=== PATIENT | female | born 1955 | race Caucasian/White ===

== ENCOUNTER 2019-03-05 07:24 | Emergency (ER) | payer OTHER ==
[2019-03-05 07:31] VITALS: BP 151/72; PULSE 66; TEMP 98.6; BMI 39.3
--- NOTE | 2019-03-05 07:33 | PDOC ---
History of Present Illness - General Chief Complaint: Revisit, Lab Variance Stated Complaint: elevated K level Time Seen by Provider: 03/05/19 07:27 History Source: Patient Exam Limitations: No Limitations - History of Present Illness Initial Comments: 03/05/19 07:30 64 year old female c/ hx of HTN, HLD presents with potassium level check. Several days ago, pt went under routine blood work. Blood results came back and noted an elevated potassium. Pt's PMD, Dr. Casanova, instructed the patient to go to ER for repeat blood work. Pt at this time currently has no complaints. Past History - Past Medical History Allergies/Adverse Reactions: Allergies Allergy/AdvReac Type Severity Reaction Status Date / Time No Known Allergies Allergy Verified 03/05/19 07:25 Home Medications: Ambulatory Orders Losartan Potassium 50 mg PO DAILY 03/05/19 Quinapril HCl 10 mg PO DAILY 03/05/19 COPD: No GI Disorders: Yes (ACID REFLUX) HTN: Yes Kidney Stones: Yes - Surgical History Cholecystectomy: Yes Orthopedic Surgery: Yes (R KNEE) - Suicide/Smoking/Psychosocial Hx Smoking Status: No Smoking History: Never smoked Have you smoked in the past 12 months: No Number of Cigarettes Smoked Daily: 0 Cigars Per Day: 0 Hx Alcohol Use: No Drug/Substance Use Hx: No Substance Use Type: None Review of Systems - Review of Systems Able to Perform ROS?: Yes Comments:: 03/05/19 07:31 GENERAL/CONSTITUTIONAL: [No fever or chills. No weakness. No weight change.] HEAD, EYES, EARS, NOSE AND THROAT: [No change in vision. No ear pain or discharge. No sore throat.] CARDIOVASCULAR: [No chest pain or shortness of breath.] RESPIRATORY: [No cough, wheezing, or hemoptysis.] GASTROINTESTINAL: [No nausea, vomiting, diarrhea or constipation. No rectal bleeding.] GENITOURINARY: [No dysuria, frequency, or change in urination.] MUSCULOSKELETAL: [No joint or muscle swelling or pain. No neck or back pain.] SKIN AND BREASTS: [No rash or easy bruising.] NEUROLOGIC: [No headache, vertigo, loss of consciousness, or loss of sensation.] PSYCHIATRIC: [No depression or anxiety.] ENDOCRINE: [No increased thirst. No abnormal weight change.] HEMATOLOGIC/LYMPHATIC: [No anemia, easy bleeding, or history of blood clots.] ALLERGIC/IMMUNOLOGIC: [No hives or skin allergy. No latex allergy.] *Physical Exam - Physical Exam Comments: 03/05/19 07:32 GENERAL: Awake, alert, and fully oriented, in no acute distress HEAD: No signs of trauma EYES: EOMI, sclera anicteric, conjunctiva clear ENT: Auricles normal inspection, hearing grossly normal, nares patent, oropharynx clear without exudates. Moist mucosa NECK: Normal ROM, supple LUNGS: Breath sounds equal, clear to auscultation bilaterally. No wheezes, and no crackles HEART: Regular rate and rhythm, normal S1 and S2, no murmurs, rubs or gallops EXTREMITIES: Normal range of motion, no edema. No clubbing or cyanosis. No cords, erythema, or tenderness NEUROLOGICAL: Cranial nerves II through XII grossly intact. Normal speech, normal gait SKIN: Warm, Dry, normal turgor, no rashes or lesions noted. ED Treatment Course - LABORATORY CBC & Chemistry Diagram: 03/05/19 07:58 Medical Decision Making - Medical Decision Making 03/05/19 07:32 Pt likely had a hemolyzed lab specimen. Pt currently with no complaints. Will repeat blood work and if potassium unremarkable, pt can be d/c'd with PMD followup. 03/05/19 08:33 CMP Sodium 140 mmol/L (136-145) 03/05/19 07:58 Potassium 4.3 mmol/L (3.5-5.1) 03/05/19 07:58 Chloride 105 mmol/L (98-107) 03/05/19 07:58 Carbon Dioxide 27 mmol/L (21-32) 03/05/19 07:58 Anion Gap 8 MMOL/L (8-16) 03/05/19 07:58 BUN 17.0 mg/dl (7-18) 03/05/19 07:58 Creatinine 0.8 mg/dl (0.55-1.3) 03/05/19 07:58 Est GFR (CKD-EPI)AfAm 90.30 03/05/19 07:58 Est GFR (CKD-EPI)NonAf 77.91 03/05/19 07:58 Random Glucose 102 mg/dl (74-106) 03/05/19 07:58 Calcium 9.0 mg/dl (8.5-10) 03/05/19 07:58 Total Bilirubin 0.4 mg/dl (0.2-1) 03/05/19 07:58 AST 16 U/L (15-37) 03/05/19 07:58 ALT 13 U/L (13-61) 03/05/19 07:58 Alkaline Phosphatase 76 U/L (45-117) 03/05/19 07:58 Total Protein 7.1 g/dl (6.4-8.2) 03/05/19 07:58 Albumin 4.1 g/dl (3.4-5.0) 03/05/19 07:58 Potassium is reassuring. Results given to the patient for followup. *DC/Admit/Observation/Transfer Diagnosis at time of Disposition: Normal exam - Discharge Dispostion Disposition: HOME Condition at time of disposition: Stable Decision to Admit order: No - Referrals Referrals: Stromy Casanova MD [Primary Care Provider] - - Patient Instructions Additional Instructions: You have a normal potassium on our blood draw today. Please bring the results to your doctor. - Post Discharge Activity
[2019-03-05 08:30] LABS: ALBUMIN 4.1 g/dl (3.4-5.0); BILIRUBIN,TOTAL 0.4 mg/dl (0.2-1); CREATININE 0.8 mg/dl (0.55-1.3); POTASSIUM 4.3 mmol/L (3.5-5.1); TOT PROT 7.1 g/dl (6.4-8.2)
== END 2019-03-05 08:38 | disposition home or self-care (01) ==
LOC: SUPCPDRO 07:24 → FER 07:24
DX: Z13.220 Encounter for screening for lipoid disorders (principal); I10 Essential (primary) hypertension; E78.5 Hyperlipidemia, unspecified
CPT/HCPCS: 36415; 80053; 99281-25

== ENCOUNTER 2019-04-27 10:07 | Day surgery (SDC) | payer OTHER ==
[2019-04-24 12:11] VITALS: BMI 39.3
[2019-04-27 11:30] VITALS: TEMP 98.5
[2019-04-27 12:20] VITALS: BP 130/86; PULSE 68
--- NOTE | 2019-05-04 12:02 | PATH ---
Surgical Pathology Report Patient Name: JENNY WASHINGTON [facility]. Rec. #: [id number] /Age/Gender: 1955 (Age: 64) / F Account: [id number] Location: [facility] Taken: 04/27/2019 Received: 04/27/2019 Reported: 05/04/2019 Physicians: Abhijeet Rodriguez M.D. Specimen(s) Received A: SECOND PORTION DUODENUM B: ANTRUM C: POLYP RECTOSIGMOID COLON Clinical History Screening GERD Postoperative diagnosis: Small hiatal hernia, gastritis, diverticulosis, colon, polyp Final Diagnosis A. SECOND PORTION DUODENUM, BIOPSY: DUODENAL MUCOSA WITH NO PATHOLOGIC FINDINGS. B. GASTRIC ANTRUM, BIOPSY: MILD CHRONIC GASTRITIS. IMMUNOSTAIN IS NEGATIVE FOR H. PYLORI ORGANISMS. C. RECTOSIGMOID, POLYP, BIOPSY: SESSILE SERRATED POLYP. Electronically Signed Pati Sevilla M.D. Gross Description A. Received in formalin, labeled "second portion duodenum" are 2 garcia, irregular portions of soft tissue measuring 0.2 cm and 0.3 cm. in greatest dimension. The specimens are submitted in toto in one cassette. B. Received in formalin, labeled "gastric antrum" are two portions of garcia irregular soft tissue, each measuring 0.3 cm. in greatest dimension. The specimen is submitted in toto in one cassette. C. Received in formalin, labeled "polyp rectosigmoid colon" is a garcia, irregular portion of soft tissue measuring 0.2 cm. in greatest dimension. The specimen is submitted in toto in one cassette. AE/04/28/2019 ebram/04/28/2019
== END 2019-04-27 12:10 | disposition home or self-care (01) ==
LOC: FASU-ENDO 10:07
PROVIDERS: ATTEND Internal Medicine Gastroenterology
PROC: 0DB98ZX Excision of Duodenum, Via Natural or Artificial Opening Endoscopic, Diagnostic (ICD-10-PCS; 2019-04-27)
PROC: 0DB68ZX Excision of Stomach, Via Natural or Artificial Opening Endoscopic, Diagnostic (ICD-10-PCS; 2019-04-27)
PROC: 0DBN8ZX Excision of Sigmoid Colon, Via Natural or Artificial Opening Endoscopic, Diagnostic (ICD-10-PCS; principal; 2019-04-27 10:47)
DX: Z12.11 Encounter for screening for malignant neoplasm of colon (principal); D12.7 Benign neoplasm of rectosigmoid junction; K57.30 Diverticulosis of large intestine without perforation or abscess without bleeding; K29.50 Unspecified chronic gastritis without bleeding; K44.9 Diaphragmatic hernia without obstruction or gangrene
CPT/HCPCS: 88305-TC; 88342-TC